=== PATIENT | male | born 1950 | race Caucasian/White ===

== ENCOUNTER 2018-02-02 17:40 | Emergency (ER) | payer OTHER ==
[2018-02-02 17:56] VITALS: BP 171/96
--- NOTE | 2018-02-02 18:17 | EDPHY ---
H & P Time Seen by Provider: 02/02/18 17:40 HPI/ROS: CHIEF COMPLAINT: Needs medication refill HISTORY OF PRESENT ILLNESS: Patient presents to the emergency department asking for medication refills for Diovan and tamsulosin. He states he lives in [facility] but has been in [place] for the last several weeks. He used to live in [place] and still has family in the area. He is here and has stayed later than usual cause he was trying to sell I house. He states he lost his medications and tried to go back to primary care clinic in [place] today for refills and they sent him to the emergency department. He denies any current symptoms. He has had no chest pain or shortness of breath recently. He will be in the area for approximately 6 more weeks. REVIEW OF SYSTEMS: Negative except per HPI. General Appearance: Alert, no distress. Eyes: Pupils equal and round no icterus Respiratory: No respiratory distress Neurological: Awake, alert, no focal deficits. Skin: Warm and dry, no rashes. Musculoskeletal: Neck is supple nontender. Extremities are symmetrical, full range of motion, no edema. Psychiatric: Patient is oriented X 3, there is no agitation. Medical/surgical history: Hypertension, BPH, reflux, CABG x4. Social history: Nonsmoker, rare alcohol. Smoking Status: Never smoked Constitutional: Initial Vital Signs Temperature (C) 36.5 C 02/02/18 17:46 Heart Rate 48 L 02/02/18 17:46 Respiratory Rate 18 02/02/18 17:46 Blood Pressure 171/96 H 02/02/18 17:46 O2 Sat (%) 97 02/02/18 17:46 O2 Delivery Mode Room Air Allergies/Adverse Reactions: No Known Allergies Allergy (Unverified 02/02/18 17:46) Home Medications: Medication Instructions Recorded Aspirin 02/02/18 Citalopram 02/02/18 Diovan 02/02/18 Flomax 02/02/18 Omeprazole 02/02/18 Tamsulosin HCl 0.4 mg PO DAILY 30 Days #30 02/02/18 Valsartan 80 mg PO DAILY 30 Days #30 tablet 02/02/18 Medical Decision Making Differential Diagnosis: Patient here for prescription refill after over stain his trip in the [facility] and inadvertently losing some of his medications. No medical complaints at this time. Was able to obtain some past medical history from previous PCP office and confirmed medications. Providing 30 day prescription for valsartan 80 mg a day and tamsulosin 0.4 mg a day. Strongly recommended patient re- establish primary care in the area as he travels here every year. Stable for outpatient follow-up. Departure - Departure Clinical Impression: Prescription refill Condition: Good Instructions: Chronic Hypertension (ED) Additional Instructions: Please try to establish a primary care doctor in the area before you leave to go back to [facility]. Referrals: NONE *PRIMARY CARE P,. [Primary Care Provider] - As per Instructions Prescriptions: Tamsulosin HCl 0.4 mg PO DAILY 30 Days #30 Valsartan 80 mg PO DAILY 30 Days #30 tablet
== END 2018-02-02 18:25 | disposition home or self-care (01) ==
LOC: CED 17:40
DX: Z76.0 Encounter for issue of repeat prescription (principal); I10 Essential (primary) hypertension